=== PATIENT | female | born 1975 | race Caucasian/White ===

== ENCOUNTER 2019-09-30 05:00 | Day surgery (SDC) | payer OTHER ==
[2019-09-29 15:31] VITALS: BMI 30.1
[2019-09-30] MEDS ORDERED: IBUPROFEN 400 MG TABLET (FP) PO PRN (08:12)
[2019-09-30] MEDS ORDERED: ACETAMINOPHEN 325 MG TABLET (FP) PO PRN (08:12)
--- NOTE | 2019-09-30 08:12 | HP ---
History & Physical Update - History History: No Change - Physical Physical: No Change - Assessment Assessment: No Change - Plan Plan: No Change (No change in HP)
[2019-09-30] MEDS ORDERED: PROPOFOL 20 ML ONE (10:28)
[2019-09-30] MEDS ORDERED: MIDAZOLAM HCL 2 MG/2 ML SINGLE DOSE VIAL ONE (10:28)
[2019-09-30] MEDS ORDERED: oxyCODONE HCL 5 MG TABLET PO PRN (11:24)
[2019-09-30] MEDS ORDERED: ONDANSETRON 4 MG/2 ML VIAL IVPUSH PRN (11:24)
[2019-09-30] MEDS ORDERED: KETOROLAC TROMETHAMINE 30 MG/1 ML VIAL ONE (11:28)
[2019-09-30] MEDS ORDERED: DEXAMETHASONE SOD PHOSPHATE 4 MG/1 ML VIAL ONE (11:28)
[2019-09-30] MEDS ORDERED: LACTATED RINGERS SOLUTION 1,000 ML IV SCH (11:30)
--- NOTE | 2019-09-30 12:49 | OP ---
Operative Note - Note: Operative Date: 09/30/19 Pre-Operative Diagnosis: Endometiral polyps Operation: hysteroscopic myomectomy. suction DC Findings: cervical polyp endometrial polyp submucosal myoma Post-Operative Diagnosis: Same as Pre-op Surgeon: Nicole Villela Anesthesia: General Estimated Blood Loss (mls): 30 Operative Report Dictated: Yes
--- NOTE | 2019-09-30 13:02 | OP ---
DATE OF OPERATION: 09/30/2019 PREOPERATIVE DIAGNOSIS: Endometrial polyp, cervical polyp. OPERATION: Hysteroscopic myomectomy, suction dilation and curettage. POSTOPERATIVE DIAGNOSIS: Endometrial polyp, cervical polyp, submucosal myoma. SURGEON: Nicole Villela MD COPY MACHINE OPERATOR: None. ANESTHESIA: General. DESCRIPTION OF PROCEDURE: Patient was taken to the operating room, placed in dorsal lithotomy position. Prepped and draped in the usual sterile fashion. Time-out was performed in accordance with hospital regulation. Speculum was placed in the vagina. Anterior lip of the cervix grasped with single-tooth tenaculum. Cervix was then dilated to accommodate the operative hysteroscope. Hysteroscope was then inserted, and visualization revealed cervical polyps and endometrial polyps, submucosal myoma. Cautery and cutting of all of the polyps and then suction dilation and curettage was then performed. Specimen was submitted to Pathology. All instruments were then removed. There was a laceration on the cervix, which was closed using 2-0 Vicryl suture. Hemostasis was achieved, and patient tolerated procedure well. Was taken to recovery room in stable condition. NICOLE VILLELA M.D. [id number]
[2019-09-30 14:30] VITALS: BP 127/74; PULSE 68; TEMP 98
--- NOTE | 2019-10-01 16:33 | PATH ---
Surgical Pathology Report Patient Name: RUDY COKER [facility]. Rec. #: [id number] /Age/Gender: 1975 (Age: 44) / F Account: [id number] Location: [facility] SURGICAL Taken: 09/30/2019 Received: 09/30/2019 Reported: 10/01/2019 Physicians: Nicole Villela M.D. Specimen(s) Received A: ENDOCERVICAL CURETTINGS, ENDOMETRIAL POLYP, ENDOCERVICAL POLYP B: UTERINE FIBROIDS Clinical History Polyp/ovarian cyst Final Diagnosis A. ENDOMETRIAL CURETTINGS, ENDOMETRIAL POLYP, ENDOCERVICAL POLYP, SUCTION D&C: FRAGMENTS OF ENDOCERVICAL AND ENDOMETRIAL POLYP. SEPARATE PROLIFERATIVE ENDOMETRIUM. SEPARATE SQUAMOUS EPITHELIUM WITH NO SIGNIFICANT PATHOLOGIC CHANGE. B. UTERINE FIBROIDS, BIOPSY: TWO FRAGMENTS OF ENDOMETRIAL POLYP. Electronically Signed Alessandro Friedman M.D. Gross Description A. Received in formalin labeled "endometrial curettings, endometrial polyp, endocervical polyp," is a 3.0 x 2.6 x 0.3 cm aggregate of mijares-red soft tissue fragments. The formalin is filtered and the specimen is entirely submitted in one cassette. B. Received in formalin labeled "fibroid uterus," is a less than 1 g aggregate of 2 mijares, firm tissue fragments measuring 0.3 and 0.7 cm in greatest dimension. The specimens are submitted in toto in one cassette. 09/30/2019 saudi09/30/2019
== END 2019-09-30 14:40 | disposition home or self-care (01) ==
LOC: JASU-SURG 05:00
PROVIDERS: ATTEND Obstetrics & Gynecology
PROC: 0UB97ZX Excision of Uterus, Via Natural or Artificial Opening, Diagnostic (ICD-10-PCS; 2019-09-30)
PROC: 0UDB8ZX Extraction of Endometrium, Via Natural or Artificial Opening Endoscopic, Diagnostic (ICD-10-PCS; 2019-09-30)
PROC: 0UB98ZZ Excision of Uterus, Via Natural or Artificial Opening Endoscopic (ICD-10-PCS; principal; 2019-09-30 10:30)
PROC: 0UBC7ZX Excision of Cervix, Via Natural or Artificial Opening, Diagnostic (ICD-10-PCS; 2019-09-30 10:30)
DX: D25.0 Submucous leiomyoma of uterus (principal); N84.0 Polyp of corpus uteri; N84.1 Polyp of cervix uteri
CPT/HCPCS: 84703; 88305-TC; 94760